=== PATIENT | female | born 1970 | race African-American/Black ===

== ENCOUNTER 2016-12-28 11:28 | Emergency (ER) | payer OTHER ==
[~2016-12-28] VITALS: Ht 172.7 cm; Wt 97.5 kg
--- NOTE | ~2016-12-28 | EKG ---
[place] [address] [facility] [place] [address] ELECTROCARDIOGRAM REPORT Name: AMINAH BATISTA Room #: [id number] Admission: 12/28/16 Attend Phys: Discharge: Date of : 68 Report #: [id number] THIS REPORT FOR: //name// [facility] ED Test Date: 2016-12-28 Test Time: 11:37:16 Pat Name: AMINAH BATISTA Department: Room: Gender: F Country Printer Apprentice: becka : 1970 Requested By: Ayan Linares Order Number: [id number] MD: Geoff Abrams Measurements Intervals [place] Rate: 90 P: 53 ME: 179 QRS: 18 QRSD: 84 T: 44 QT: 361 QTc: 442 Interpretive Statements Sinus rhythm Compared to ECG 10/26/2015 02:55:59 No significant changes Electronically Signed On 12-28-2016 16:51:03 CDT by Geoff Abrams [email or web address] <ELECTRONICALLY SIGNED> By: Geoff Abrams MD 12/28/16 1651 [id number] MD JOANNA Monzon
[~2016-12-28 11:28] MED LIST: ASPIRIN81 MG PO; ATIVAN1 MG PO; AUGMENTIN 875875 M1 PO; BACTRIM DS TAB1 EACH PO; BENADRYL25 MG PO; DARVOCET-N 1001 EACH PO; DEPAKENE250 MG; DEPAKENE250 MG PO; DILANTIN100 MG PO; FIORICET 50-321 EACH PO; FLAGYL500 MG PO; FLEXERIL PO; HYDROCODON-ACE1 EAC8 PO; IBUPROFEN 600600 M1 PO; IRON325; KEPPRA 500 MG500 M1 PO; KEPPRA 500 MG500 MG PO; LISINOPRIL10 MG PO; MEDROLDOSEPACK PO; NABUMETONE 750750 M1 PO; NAPROSYN500 MG PO; NEURONTIN 300300 M1 PO; NOHOMEMEDICATIONS; NORCO 10-325 T1 EACH PO; NORCO 5-325 TA1 EACH PO; NORCO 7.5-3251 EACH PO; PERMETHRIN60 GM TOP; PHENERGAN 25 MG25 M1 PO; PREDNISONE 10 M10 M1; PREDNISONE 10 M10 MG; PREDNISONE 20 M20 MG PO; PROTONIX40 M2 PO; PROVERA10 MG PO; REGLAN 10 MG TA10 MG PO; REGLAN 5 MG TAB5 M1 PO; RELAFEN500 MG PO; RELAFEN750 MG PO; STAVZOR500 MG PO; TIZANIDINE HCL4 MG PO; TOPAMAX200 MG PO; TRAMADOL 50 MG50 MG PO; ULTRAM 50MG TAB50 MG PO; ZANAFLEX4 M1 PO; ZPAK PO
[2016-12-28] MEDS ORDERED: AMLODIPINE BESY10 MG PO (13:19)
[2016-12-28 13:48] VITALS: BP 135/85
[2016-12-28 14:53] LABS: ABSOLUTE NEUTROPHILS 3.5 thou/uL (1.4-8.2); BASOPHILS 0.9 % (0.0-2.0); EOSINOPHILS 2.6 % (0.0-3.0); HEMATOCRIT 31.4 % (37.0-47.0); HEMOGLOBIN 10.2 gm/dL (12.0-15.0); LYMPHOCYTES 38.2 % (24.0-44.0); MCH 26.6 pg (26.0-34.0); MCHC 32.6 g/dL (28.0-37.0); MCV 81.7 fL (80.0-100.0); PLATELET COUNT 235 thou/uL (150-400); POLYS 49.3 % (36.0-66.0); RBC 3.84 mil/uL (4.20-5.00); RDW 13.3 % (10.5-14.5); WBC 7.1 thou/uL (4.0-11.0)
[2016-12-28 14:54] LABS: MANUAL DIFF NO
[2016-12-28 15:02] LABS: ANION GAP 7 mmol/L (7-16); BUN 10 mg/dL (7-18); CALCIUM 9.1 mg/dL (8.5-10.1); CHLORIDE 103 mmol/L (98-107); CO2 27 mmol/L (21-32); CREATININE 0.8 mg/dL (0.6-1.0); GLUCOSE 105 mg/dL (74-106); POTASSIUM 3.9 mmol/L (3.5-5.1); SODIUM 137 mmol/L (136-145)
[2016-12-28 15:11] LABS: TROPONIN-I < 0.04 ng/mL (<0.04-0.07)
== END 2016-12-28 17:30 | disposition home or self-care (01) ==
LOC: ER 11:28
PROVIDERS: Emergency Medicine
DX: R07.9 Chest pain, unspecified (principal); G89.29 Other chronic pain; R51 Headache; Z90.711 Acquired absence of uterus with remaining cervical stump; Z88.6 Allergy status to analgesic agent

== ENCOUNTER 2018-10-27 15:26 | Emergency (ER) | payer OTHER ==
[~2018-10-27] VITALS: Ht 167.6 cm; Wt 90.7 kg
[~2018-10-27 15:26] MED LIST changes: +AMLODIPINE BESY10 MG PO
[2018-10-27 16:11] LABS: URINE BILIRUBIN NEGATIVE (Negative); URINE BLOOD NEGATIVE (Negative); URINE CLARITY CLOUDY; URINE COLOR YELLOW; URINE GLUCOSE-RANDOM* NEGATIVE (Negative); URINE KETONES NEGATIVE (Negative); URINE PROTEIN (DIPSTICK) TRACE (Negative); URINE SPECIFIC GRAVITY >= 1.030 (1.005-1.035); URINE UROBILINOGEN 0.2 E.U./dl (0.2-1.0)
[2018-10-27 16:13] LABS: URINE LEUKOCYTES-REFLEX 1+ (Negative); URINE NITRITE-REFLEX POSITIVE (Negative)
[2018-10-27 16:31] LABS: CASTS None Seen /LPF (None Seen); CRYSTALS None Seen /LPF (None Seen); SQUAMOUS 4-10 Moderate /LPF (0-3); URINE RBC None Seen /HPF (0-2); URINE WBC-REFLEX 6-15 Few /HPF (0-5)
[2018-10-27] MEDS ORDERED: KEFLEX500 M1 PO (17:04)
[2018-10-27] MEDS ORDERED: ZOFRAN ODT4 MG PO (17:06)
[2018-10-27 17:38] VITALS: BP 121/88
== END 2018-10-27 17:01 | disposition home or self-care (01) ==
LOC: ER 15:26
PROVIDERS: Emergency Medicine
DX: N39.0 Urinary tract infection, site not specified (principal); G89.29 Other chronic pain; R51 Headache; Z90.711 Acquired absence of uterus with remaining cervical stump; Z88.8 Allergy status to other drugs, medicaments and biological substances; Z88.6 Allergy status to analgesic agent

== ENCOUNTER 2020-02-29 17:31 | Emergency (ER) | payer OTHER ==
[~2020-02-29] VITALS: Ht 167.6 cm; Wt 122.5 kg
[~2020-02-29 17:31] MED LIST changes: +KEFLEX500 M1 PO; +ZOFRAN ODT4 MG PO
[2020-02-29] MEDS ORDERED: NF (19:37)
[2020-02-29] MEDS ORDERED: KEPPRA XR500 MG PO (19:52)
[2020-02-29 20:03] VITALS: BP 147/75
--- NOTE | 2020-03-01 07:44 | EKG ---
[facility] [place] [address] ELECTROCARDIOGRAM REPORT Name: AMINAH BATISTA Room #: [facility]#: [id number] Admission: 02/29/20 Attend Phys: Discharge: 02/29/20 Date of : 68 Report #: [id number] THIS REPORT FOR: cc: CHANTAL Bolton family physician/PCP CHANTAL Bolton family physician/PCP Ike Izaguirre MD [facility] THIS REPORT FOR: //name// [facility] ED Test Date: 2020-02-29 Test Time: 18:23:04 Pat Name: AMINAH BATISTA Department: Room: Gender: F Employee Communications Coordinator: ARON MARYAMOCTAVIO : 1970 Requested By: Sukumar Graves Order Number: [id number] MD: Ike Izaguirre Measurements Intervals [place] Rate: 76 P: 57 NV: 180 QRS: 7 QRSD: 89 T: 9 QT: 378 QTc: 426 Interpretive Statements Sinus rhythm Borderline T abnormalities, inferior leads Baseline wander in lead(s) II,III,aVF,V2 Compared to ECG 12/28/2016 11:37:16 T-wave abnormality now present Electronically Signed On 03-01-2020 7:44:33 CDT by Ike Izaguirre [email or web address] <ELECTRONICALLY SIGNED> By: Ike Izaguirre MD, FACC 03/01/20 0744 22 22 Ike Izaguirre MD, FACC /EPI
== END 2020-02-29 20:03 | disposition home or self-care (01) ==
LOC: ER 17:31
DX: R56.9 Unspecified convulsions (principal); Z88.8 Allergy status to other drugs, medicaments and biological substances